=== PATIENT | female | born 1970 | race Caucasian/White ===

== ENCOUNTER 2023-11-08 10:50 | Emergency (ER) | payer MEDICAID, SELFPAY ==
--- NOTE | 2023-11-08 11:32 | ED_ITS ---
HPI - General Adult General Chief complaint: Back Pain/Injury Stated complaint: lower back pain l side Time Seen by Provider: 11/08/23 11:40 Source: patient Mode of arrival: ambulatory Limitations: no limitations History of Present Illness ED Provider: Anitha Saez PA-C HPI narrative: Patient is a 53 year old assigned female at with a history of low back pain presenting to the emergency department today with acute on chronic low back pain. Patient states that she has had this a few times before and it resolves. Patient states that starting this morning she began to have central low back pain that radiates some. Patient states that she is scheduled to see a back specialist in December. Patient denies any dizziness, lightheadedness, abdominal pain, nausea, vomiting, fever, chills, blurry vision, double vision, loss of vision, chest pain, difficulty breathing, shortness of breath, night sweats, pain with urination, increased urinary frequency, increased urinary urgency, bl ood in her urine or stool, syncope or a near syncopal episode, recent trauma or falls, bowel incontinence, bladder incontinence, or any other complaints at this time. Relieving factors: none Exacerbating factors: none Associated symptoms: denies other symptoms Treatments prior to arrival: none Related Data Previous Rx's ?Medication ?Instructions ?Recorded cyclobenzaprine 5 mg tablet 5 mg PO TID PRN back pain 7 days 11/08/23 #21 tabs prednisone 20 mg tablet 20 mg PO DAILY 12 days #26 tabs 11/08/23 Allergies Allergy/AdvReac Type Severity Reaction Status Date / Time No Known Allergies Allergy Verified 11/08/23 11:35 Review of Systems Constitutional: Constitutional: Reports no additional constitutional complaints, Denies chills, Denies fever(s) and Denies night sweats Eyes: Eyes: Reports no additional eye complaints, Denies blurry vision, Denies change in vision, Denies diplopia, Denies eye discharge, Denies loss of vision and Denies eye pain ENT: Denies dizziness Cardiovascular: Cardiovascular: Reports no additional cardiovascular complaints, Denies chest pain, Denies lightheadedness, Denies Loss of Consciousness and Denies dyspnea Respiratory: Respiratory: Reports no additional respiratory complaints and Denies dyspnea Gastrointestinal: Gastrointestinal: Reports no additional gastrointestinal complaints, Denies abdominal pain, Denies melena, Denies hematochezia, Denies change in bowel habits and Denies change in stool character Genitourinary: Genitourinary: Denies hematuria, Denies urinary frequency, Denies dysuria, Denies urinary incontinence, Denies urinary hesitancy and Denies urinary urgency Musculoskeletal: Musculoskeletal: Reports no additional musculoskeletal complaints, Reports back pain, Denies numbness and Denies tingling Neurologic: Denies dizziness, Denies loss of vision, Denies numbness and Denies tingling Psychiatric: Psychiatric: Reports no additional psychiatric complaints Endocrine: Endocrine: Reports no additional endocrine complaints Hematologic/Lymphatic: Hematologic/Lymphatic: Reports no additional hematologic/lymphatic complaints Allergic/Immunologic: Allergic/Immunologic: Reports no additional allergic/immunologic complaints [facility] Past Medical History Attestation statement: The following information was validated with the patient. Source: old records reviewed and nursing notes reviewed Social History Social History Advance Directives: No Advance Directives Information Provided: No Do you have a plan to hurt others: No Plan Physical Exam ED Vital Signs: Vital Signs - 24 hr 11/08/23 11:33 11/08/23 11:44 11/08/23 11:45 Temperature 97.9 F 0 F L 0 F L Pulse Rate 72 0 L 0 L Respiratory Rate 18 0 L 0 L Blood Pressure 138/78 00/0 L 0/0 L Pulse Oximetry 96 0 L 0 L Oxygen Delivery Method Room Air Room Air BMI result Body Mass Index 39.3 Const General: cooperative, no acute distress, alert and awake Nutritional Appearance: well nourished Orientation/consciousness: patient oriented x3 Limitations: no limitations [facility] Head: Yes normal to inspection and Yes atraumatic Ears: hearing grossly normal bilaterally and external ears normal General nose exam: Normal external nose present, no nasal discharge noted and no epistaxis Face and sinus: Yes normal facial exam, No abrasion and No laceration Mouth: Normal oral and palatal mucosa present, no drooling and no muffled voice Eyes General: appearance normal, both eyes and all related structures Periorbital: periorbital findings normal Eyelids: Yes eyelids normal Conjunctivae: conjunctivae normal Pupils: Equal, round and reactive pupils present EOM: EOMs intact bilaterally Neck Neck: Yes normal visual inspection, Yes full ROM and Yes no lymphadenopathy Chest Chest palpation & inspection: normal inspection of the chest Resp Effort & Inspection: normal respiratory effort and able to speak in complete sentences GI Inspection: Yes normal to inspection Neuro General: patient oriented x3 and moves all extremities Cranial nerves: Yes Equal, round and reactive pupils present Cognition (Neuro): normal cognition Extrem General: Yes normal to inspection, Yes full ROM and Yes capillary refill normal Psych Appearance: grossly normal Mental Status: mental status grossly normal Affect: normal affect Attitude: cooperative Thought process: Normal thought process present Thought content: Normal thought content present Insight: Good insight present (Psych) Medical Decision Making Medical Decision Making MDM Narrative: Patient is a 53 year old assigned female at with a history of back pain presenting to the emergency department today with new back pain. Patient's physical exam was unremarkable. I explained my physical exam findings to the patient. I answered all questions asked by the patient. I stressed the importance of the patient taking her medication as directed (either prescribed or as the over the counter packaging recommends). I stressed the importance of the patient following up with her primary care provider and her clinical research specialist as scheduled in December. I stressed the importance of the patient returning to the emergency department immediately if her symptoms were to worsen or if she were to develop any dizziness, shortness of breath, difficulty breathing, chest pain, blurry vision, loss of vision, nausea, vomiting, abdominal pain, fever, chills, back pain, or any other complaints. Patient verbalized agreement and understanding with this treatment plan and discharge. Differential Diagnosis Differential Diagnoses: The differential diagnosis associated with the presentation includes Back pain Bulging disc Lumbar strain Admission/Observation Consideration of admission/observation: Escalation of care including admission/observation considered Patient would have been admitted to the hospital had her clinical presentation warranted hospital admission. Tests considered The following testing was considered but not selected: I considered obtaining a plain X-ray of the lumbar spine however, the patient's current clinical presentation and lack of mechanism of injury did not warrant this. I discussed this with the patient who verbalized understanding and agreement. Prescription Management I considered prescription management with: Pain Medication (patient prescribed pain medication) Discharge Plan Discharge Clinical Impression: Strain of lumbar region Patient Disposition: Home, Self-Care Instructions: Acute Low Back Pain (ED), Lower Back Exercises (ED) Additional Instructions: Follow up with your primary care provider and your clinical research specialist. Return to the emergency department immediately if your symptoms worsen or if you develop any dizziness, shortness of breath, difficulty breathing, chest pain, blurry vis ion, loss of vision, nausea, vomiting, abdominal pain, fever, chills, back pain, or any other complaints. Prescriptions: New cyclobenzaprine 5 mg tablet 5 mg PO TID PRN (Reason: back pain) 7 Days Qty: 21 0RF prednisone 20 mg tablet 20 mg PO DAILY 12 Days Qty: 26 0RF Rx Instructions: Take 3 tablets for 5 days THEN; Take 2 tablets for 4 days THEN; Take 1 tablet for 3 days Ref[place]: [facility] [place]] (Call to establish and follow up with a primary care provider. If you already have a primary care provider, please follow up with them.) [facility] [place] [facility] [Provider Group] (Call to establish and follow up with a primary care provider. If you already have a primary care provider, please follow up with them.) [facility] [place] [facility]Ana [Provider Group] (Call to establish and follow up with a primary care provider. If you already have a primary care provider, please follow up with them.) [facility] [place] [facility] [Provider Group] (Call to establish and follow up with a clinical research specialist. ) Interventions: ED Discharge Assessment Last Done: 11/08/23 11:45 Discharge Date/Time: 11/08/23 11:47 Print Language: Mosotho
[2023-11-08 11:33] VITALS: BP 138/78; PULSE 72; RESP 18; TEMP 36.6; O2SAT 96; BMI 39.3
[2023-11-08 11:44] VITALS: BP 00/0; PULSE 0; RESP 0; TEMP -17.7; TEMP 0; O2SAT 0
--- OUTSIDE RECORDS SUMMARY | 2023-11-08 11:44 | XMS_ITS | Continuity of Care Document ---
Author Organization [facility] ter Address [address] [place] [id number] Care Team Providers Care Bench Scientist Name Role Phone Veena Kellogg NP Primary Care Physician [phone] Encounter [facility] Date(s): 02/23/23 - 03/31/[address] [address]- [place] Attending Physician: Kelly Aguilar NP Admitting Physician: Lauren DUMONT, Kelly Aponte Referring Physician: Kelly Aguilar NP Medications Keppra 500 mg oral tablet 1 tablet = 500 mg, By Mouth, 2 times a day, # 60 tablet, 5 Refills, Maintenance, 02/05/23 13:17:00 EST, Tablet, Partial fill upon patient request if the prescription is for a schedule II opioid drug. Start Date: 02/05/23 Status: Ordered SEROquel 100 mg oral tablet 100 mg, 1, tablet, By Mouth, 2 times a day, Refills 0, Maintenance, 02/05/23 13:17:00 EST, Partial fill upon patient request if the prescription is for a schedule II opioid drug. Start Date: 02/05/23 Status: Ordered Patient Care team information Care Team Personnel Name: Veena Kellogg NP Position: Reference Physician Member Role: PCP Address: Address: [address] [place] [id number]
--- OUTSIDE RECORDS SUMMARY | 2023-11-08 11:44 | XMS_ITS ---
Author Organization [facility] Address [address] [place] [phone] Care Team Providers Care Art Psychotherapist Or Therapist Name Role Phone Veena Kellogg Primary Care Provider [phone] [facility] Unavailable Unavailable REASON FOR VISIT R sided knee pain Encounters Encounter Location Date Provider Diagnosis [address] [id number] 10/29/2023 Veena Kellogg PLAN OF TREATMENT Next Appt Details Provider Name:Viviana rooney, 11/09/2023 01:00:00 PM, [address] [place] [address] FOR [facility], [place], [place], [phone], Provider Name:Mary Maharaj, 01/20/2024 02:00:00 PM, [address] [place] [address], [phone], Provider Name:Veena fitch, 03/27/2024 11:30:00 AM, [address] [place] [address], [phone],
--- OUTSIDE RECORDS SUMMARY | 2023-11-08 11:44 | XMS_ITS ---
Author Organization [facility] Address [address] [place] [phone] Care Team Providers Care Rib Matcher And Fitter Name Role Phone Veena Kellogg Primary Care Provider [facility] Unavailable Unavailable REASON FOR VISIT Cetirizine MEDICATIONS Medication SIG (Take, Route, Frequency, Duration) Notes Start Date End Date Status ZyrTEC 10 mg 1 tab(s) orally once a day for 90 days Active Encounters Encounter Location Date Provider Diagnosis [address] [id number] 10/27/2023 Veena Kellogg PLAN OF TREATMENT Medication Medication Name Sig Start Date Stop Date Notes ZyrTEC 10 mg 1 tab(s) orally once a day for 90 days Next Appt Details Provider Name:Viviana rooney, 11/09/2023 01:00:00 PM, [address] [place] [address] FOR [facility] [place], [place], [phone], Provider Name:Mary Maharaj, 01/20/2024 02:00:00 PM, [address] [place] [address], [phone], Provider Name:Veena ficth, 03/27/2024 11:30:00 AM, [address] [place] [address], [phone],
--- OUTSIDE RECORDS SUMMARY | 2023-11-08 11:44 | XMS_ITS | Continuity of Care Document ---
Author Organization [facility] Address [address] [facility], [address] Floor, [address] [place] [phone]- Care Team Providers Care Axle Bearing Polisher Name Role Phone Veena Kellogg NP Primary Care Physician Encounter [facility] R [id number] Date(s): 04/09/22 - 05/16/22 [facility] [address] [facility], [address]rd Floor, [address] [place] [id number] Attending Physician: Fay Kirby NP Admitting Physician: Fay Kirby NP Referring Physician: Veena Kellogg NP Patient Care team information Care Team Personnel Name: Veena Kellogg NP Position: Reference Physician Member Role: PCP Address: Address: [address] [place] [id number]
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
--- OUTSIDE RECORDS SUMMARY | 2023-11-08 11:44 | XMS_ITS | Continuity of Care Document ---
Author Organization [facility] Address [address] [place] [address]- Care Team Providers Care Cue Worker Name Role Phone Veena Kellogg NP Primary Care Physician [place] [facility] [place] - 07/04/[address] [address]- Attending Physician: Kelly Aguilar NP Admitting Physician: [...] Reference Physician Member Role: PCP Address: Address: [address] [place] [id number]
--- OUTSIDE RECORDS SUMMARY | 2023-11-08 11:44 | XMS_ITS | Continuity of Care Document ---
Author Organization [facility] Address [address] [place] [address]- Care Team Providers Care Special Education Resource Room Teacher Name Role Phone Veena Kellogg NP Primary Care Physician En[place] [facility] [place](s): 06/25/23 - 07/25/[address] [address] Attending Physician: Ree Bullock Admitting Physician: Ree Bullock Referring Physician: AdmRee acosta Medications Keppra 500 mg oral tablet 1 [...] Reference Physician Member Role: PCP Address: Address: [address] [place] [id number]
--- OUTSIDE RECORDS SUMMARY | 2023-11-08 11:44 | XMS_ITS | Continuity of Care Document ---
Author Organization [facility] Address [address] [place] [address]- Care Team Providers Care Informatics Educator Name Role Phone Veena Kellogg NP Primary Care Physician [place] [facility] [place] - 07/25/[address] [address]- Attending Physician: Danyell Cameron MD Admitting Physician: Danyell Cameron MD Referring Physician: Veena Kellogg NP Medications Keppra 500 mg oral tablet [...] Reference Physician Member Role: PCP Address: Address: [address] [place] [id number]
--- OUTSIDE RECORDS SUMMARY | 2023-11-08 11:44 | XMS_ITS | Continuity of Care Document ---
Author Organization [facility] Address [address] [facility], [address] d Floor, [address] [place] [address]- Care Team Providers Care Deblocker Name Role Phone Veena Kellogg NP Primary Care Physician [place] [facility] [place] 04/16/22 - 05/16/22 [facility] [address] [facility], 3rd Floor, [address] [place] [address] Attending Physician: Admtr, Ar8 Admitting Physician: Admtr, Ar8 Referring Physician: Admtr Ar8 Patient Care team information Care Team Personnel Name: Veena Kellogg NP Position: Reference Physician Member Role: PCP Address: Address: [address] [place] [id number]
--- OUTSIDE RECORDS SUMMARY | 2023-11-08 11:44 | XMS_ITS | Continuity of Care Document ---
Author Organization [facility] Address [address] [facility], [address] d Floor, [address] [place] [address]- Care Team Providers Care Yeast Stacker Name Role Phone Veena Kellogg NP Primary Care Physician En[place] [facility] [place] Date(s): 12/12/21 - 01/11/22 [facility] [address] [facility], 3rd Floor, [address] [place] [id number] Patient Care team information Personnel Name: Veena Kellogg NP Address: Address: [address] [place] [id number]
--- OUTSIDE RECORDS SUMMARY | 2023-11-08 11:44 | XMS_ITS | Continuity of Care Document ---
Author Organization [facility] Address [address] [place] [address]- Care Team Providers Care Criminal Justice Professor Name Role Phone Veena Kellogg NP Primary Care Physician [phone] Encounter [facility] [id number] Date(s): 04/10/22 - 05/10/[address] [address] Attending Physician: Admdave, Ar8 Admitting Physician: Admtr, Ar8 Referring Physician: Admtr Ar8 Patient Care team information Care Team Personnel Name: Veena Kellogg NP Position: Reference Physician Member Role: PCP Address: Address: [address] [place] [id number]
--- OUTSIDE RECORDS SUMMARY | 2023-11-08 11:44 | XMS_ITS | Continuity of Care Document ---
Author Organization [facility] Address [address] [place] [address]- Care Team Providers Care Rhic Systems Safety Engineer Name Role Phone Veena Kellogg NP Primary Care Physician [phone] [id number] - 05/10/[address] [address] Attending Physician: Danyell Cameron MD Admitting Physician: Danyell Cameron MD Referring Physician: Veena Kellogg NP Patient Care team information Care Team Personnel Name: Veena Kellogg NP Position: Reference Physician Member Role: PCP Address: Address: [address] [place] [id number]
--- OUTSIDE RECORDS SUMMARY | 2023-11-08 11:44 | XMS_ITS | Continuity of Care Document ---
Author Organization [facility] Address [address] [place] [address]- Care Team Providers Care Data Security Consultant Name Role Phone Veena Kellogg NP Primary Care Physician Encounter [facility] [place] Date(s): 04/09/22 - 05/09/[address] [address] Patient Care team information Care Team Personnel Name: Veena Kellogg NP Position: Reference Physician Member Role: PCP Address: Address: [address] [place] [address]
[2023-11-08 11:45] VITALS: BP 0/0; PULSE 0; RESP 0; TEMP -17.7; TEMP 0; O2SAT 0
== END 2023-11-08 11:47 | disposition home or self-care (01) ==
PROVIDERS: Emergency Provider Emergency Medicine
DX: M54.50 Low back pain, unspecified (principal)
CPT/HCPCS: 99282; 99283